=== PATIENT | female | born 1980 | race Caucasian/White ===

== ENCOUNTER 2021-05-07 20:35 | Inpatient (IN) | payer OTHER ==
[~2021-05-07] VITALS: Ht 160 cm; Wt 77.1 kg
[2021-05-08 09:03] LABS: HEMOGLOBIN 12.7 gm/dl (12.3-15.3); RED BLOOD COUNT 3.42 M/UL (4.00-5.10); WHITE BLOOD COUNT 11.7 K/UL (4.5-11.0)
[2021-05-08 09:59] LABS: BUN/CREATININE RATIO 10 (0-10)
[2021-05-10] MEDS ORDERED: AUGMENTIN 875-1 EACH PO (09:33)
[2021-05-10 09:34] LABS: HEMOGLOBIN 13.1 gm/dl (12.3-15.3); RED BLOOD COUNT 3.49 M/UL (4.00-5.10)
[2021-05-10] MEDS ORDERED: NICOTINE PATCH1 EAC5 TD (09:37)
[2021-05-10 09:45] LABS: WHITE BLOOD COUNT 7.3 K/UL (4.5-11.0)
== END 2021-05-10 12:10 | disposition home or self-care (01) | DRG 392 ==
LOC: MED SURG 4 20:35
PROVIDERS: ADMIT Surgery
DX: K57.20 Diverticulitis of large intestine with perforation and abscess without bleeding (principal); Z98.890 Other specified postprocedural states; Z79.899 Other long term (current) drug therapy
CPT/HCPCS: 36415; 80053; 85025; 85027; J2060; J2270; J2405; J2543; J7030

== ENCOUNTER 2021-05-17 18:10 | Inpatient (IN) | payer OTHER ==
[~2021-05-17] VITALS: Ht 160 cm; Wt 76.3 kg
[~2021-05-17 18:10] MED LIST: AUGMENTIN 875-1 EACH PO; NICOTINE PATCH1 EAC5 TD
[2021-05-17] MEDS ORDERED: HYDROCODON-ACE1 EAC4 PO (23:32)
[2021-05-18 06:41] LABS: HEMOGLOBIN 13.1 gm/dl (12.3-15.3); RED BLOOD COUNT 3.59 M/UL (4.00-5.10); WHITE BLOOD COUNT 23.3 K/UL (4.5-11.0)
[2021-05-18 07:15] LABS: BUN/CREATININE RATIO 11 (0-10)
[2021-05-21 07:15] LABS: HEMOGLOBIN 12.3 gm/dl (12.3-15.3); RED BLOOD COUNT 3.44 M/UL (4.00-5.10); WHITE BLOOD COUNT 9.9 K/UL (4.5-11.0)
[2021-05-21 07:47] LABS: BUN/CREATININE RATIO 3 (0-10)
--- NOTE | 2021-05-21 13:42 | NUR ---
PATIENT TRANSPORTED TO SURGERY VIA STRETCHER PER SURGERY NURSE. NO DISTRESS NOTED.
--- NOTE | 2021-05-22 11:00 | NUR ---
PATIENT OFF THE FLOOR WITH . ADVISED PATIENT AGAINST GOING OFF THE FLOOR.
[2021-05-23 15:01] LABS: RED BLOOD COUNT 3.08 M/UL (4.00-5.10); WHITE BLOOD COUNT 18.2 K/UL (4.5-11.0)
[2021-05-23 16:09] LABS: BUN/CREATININE RATIO 6 (0-10)
[2021-05-24 04:13] LABS: BUN/CREATININE RATIO 8 (0-10)
[2021-05-27] MEDS ORDERED: ATENOLOL25 MG PO (14:48)
[2021-05-28] MEDS ORDERED: PERCOCET 5-3251 EACH PO (08:48)
[2021-05-28] MEDS ORDERED: NICOTINE PATCH1 EAC1 TD (08:57)
== END 2021-05-28 12:10 | disposition home or self-care (01) | DRG 329 ==
LOC: MED SURG 4 18:10 → M/S 23:00 → CCU 05-23 10:01 → PROG CARE 05-23 16:09 → MED SURG 4 05-24 17:45
PROVIDERS: Surgery; ADMIT Surgery
PROC: 0DBN0ZZ Excision of Sigmoid Colon, Open Approach (ICD-10-PCS; principal; 2021-05-21 15:00)
DX: K57.20 Diverticulitis of large intestine with perforation and abscess without bleeding (principal); K65.1 Peritoneal abscess; F41.9 Anxiety disorder, unspecified; Z79.899 Other long term (current) drug therapy; Z83.3 Family history of diabetes mellitus; Z80.1 Family history of malignant neoplasm of trachea, bronchus and lung; Z83.79 Family history of other diseases of the digestive system
CPT/HCPCS: 36415; 36600; 71045; 74018; 77012; 80048; 80053; 82803; 85025; 85027; 85610; 87070; 87077; 87186; 87205; 94640; 94660; 94664; 94667; 94760; 97110-GP-CQ; 97116-GP-CQ; 97162; 97166; 97530; J1100; J1650; J1940; J2001; J2060; J2250; J2270; J2310; J2370; J2405; J2543; J2704; J2710; J3010; J7030; J7120; Q9963; U0002